=== PATIENT | female | born 1985 | race Caucasian/White ===

== ENCOUNTER 2022-04-07 20:25 | Emergency (ER) | payer OTHER, SELFPAY ==
[2022-04-07 20:39] VITALS: BP 138/86; PULSE 112; O2SAT 98
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
== END 2022-04-07 21:31 ==
LOC: ED 20:25
DX: F10.129 Alcohol abuse with intoxication, unspecified (principal); Z72.0 Tobacco use; Z28.310 Unvaccinated for COVID-19
CPT/HCPCS: 99281